=== PATIENT | male | born 1930 | race Caucasian/White ===

== ENCOUNTER 2017-09-18 13:04 | Inpatient (IN) | payer MEDICARE, MEDICAID ==
[~2017-09-18] VITALS: Ht 172.7 cm; Wt 63.1 kg
[~2017-09-18 13:04] MED LIST: APIX5TAB PO; ASCO250T4 PO; ATOR10TA9 PO; BUDE10.2 INH; CEPH250S PO; CLOP75TA52 PO; DIGO125T PO; FERR325T18 PO; GABA-826 PO; LANS15CA5 PO; LEVA0.318 INH; METO25TA35 PO; MIRT30TA4 PO; NICO-487 TD; OXYC5CAP2 PO; POTA10TA11 PO; PRAV40TA2 PO; SENN1TAB7 PO; TAMS-11 PO; TIOT18CA INH
[2017-09-18] MEDS ORDERED: ALBUTEROL/IPRATROPIUM 2.5MG/0.5MG, 3 ML ONE (13:53)
[2017-09-18] MEDS ORDERED: SODIUM CHLORIDE 0.9% 1,000ML IVBOLUS ONE (14:00)
[2017-09-18] MEDS ORDERED: SODIUM CHLORIDE FLUSH 10ML SYR IVF ONE (14:00)
[2017-09-18] MEDS ORDERED: ALBUTEROL/IPRATROPIUM 2.5MG/0.5MG, 3 ML NPPB SCH (14:00)
[2017-09-18 14:21] LABS: BASOPHILS # (AUTO) 0.05 x10^3/uL (0-0.1); BASOPHILS % (AUTO) 1 % (0-1); EOSINOPHILS # (AUTO) 0.05 x10^3/uL (0-0.4); EOSINOPHILS % (AUTO) 1 % (1-7); LYMPHOCYTES # (AUTO) 1.16 x10^3/uL (1-3.4); LYMPHOCYTES % (AUTO) 13 % (22-44); MD NO; MEAN CORPUSCULAR HGB CONC 33.3 g/dL (33.2-36.2); MEAN PLATELET VOLUME 8.7 fL (7.4-10.4); MONOCYTES % (AUTO) 10 % (2-9); NEUTROPHILS # (AUTO) 7.11 x10^3/uL (1.8-6.8); NEUTROPHILS % (AUTO) 77 % (42-75); PLATELET COUNT 126 x10^3/uL (130-400); RED BLOOD COUNT 3.88 x10^6/uL (4.38-5.82); RED CELL DISTRIBUTION WIDTH 15.9 % (9.4-14.8)
[2017-09-18 14:26] LABS: RAPID INFLUENZA A Negative (Negative); RAPID INFLUENZA B Negative (Negative)
[2017-09-18 14:33] LABS: ALANINE AMINOTRANSFERASE 17 U/L (12-78); ALBUMIN 2.9 g/dL (3.4-5.0); ANION GAP 4 mmol/L (5-15); CALCIUM 8.2 mg/dL (8.5-10.1); CHLORIDE 109 mmol/L (98-107); CREATININE 1.44 mg/dL (0.7-1.3)
[2017-09-18 14:37] LABS: ALKALINE PHOSPHATASE 107 U/L (45-117); BILIRUBIN,TOTAL 0.8 mg/dL (0.2-1.0); TOTAL PROTEIN 6.7 g/dL (6.4-8.2); TROPONIN I 0.017 ng/mL (0.000-0.045)
[2017-09-18] MEDS ORDERED: SODIUM CHLORIDE 0.9% 1,000 ML IV ONE (15:25)
[2017-09-18] MEDS ORDERED: SODIUM CHLORIDE FLUSH 10ML SYR IVF PRN (15:30)
[2017-09-18] MEDS ORDERED: ONDANSETRON 2MG/ML, 2ML IVPush PRN (16:30)
[2017-09-18] MEDS ORDERED: ENOXAPARIN 40 MG/0.4 ML SQ SCH (16:30)
[2017-09-18] MEDS ORDERED: POLYETHYLENE GLYCOL 17 GM PACKET PO PRN (16:30)
[2017-09-18] MEDS ORDERED: ONDANSETRON ODT 4 MG PO PRN (16:30)
[2017-09-18] MEDS ORDERED: LABETALOL 5MG/ML, 20ML IVPush PRN (16:30)
[2017-09-18] MEDS ORDERED: ALBUTEROL/IPRATROPIUM 2.5MG/0.5MG, 3 ML NPPB PRN (17:00)
[2017-09-18 17:19] LABS: TROPONIN I 0.022 ng/mL (0.000-0.045)
[2017-09-18 17:57] VITALS: BP 115/50
[2017-09-18] MEDS ORDERED: SODIUM CHLORIDE 0.9% 1,000 ML IV SCH (18:00)
[2017-09-18] MEDS ORDERED: METOPROLOL TARTRATE 25 MG TABLET PO SCH (18:00)
[2017-09-18 18:11] VITALS: BP 115/50
[2017-09-18] MEDS ORDERED: CEFTRIAXONE 1,000 MG in SODIUM CHLORIDE 0.9% 50 ML IV SCH (18:30)
[2017-09-18] MEDS: SODIUM CHLORIDE 0.9% 1,000 ML IV SCH (18:44)
[2017-09-18 19:33] VITALS: BP 100/61
[2017-09-18] MEDS ORDERED: DOXYCYCLINE 100MG TABLET PO SCH (21:00)
[2017-09-18] MEDS: IPRATROPIUM 0.5 MG/2.5 ML INHA NPPB SCH (21:00)
[2017-09-18] MEDS: MIRTAZAPINE 15 MG TABLET PO SCH (21:02)
[2017-09-18] MEDS: APIXABAN 2.5 MG TABLET PO SCH (21:02)
[2017-09-18] MEDS: GABAPENTIN 100 MG CAPSULE PO SCH (21:02)
[2017-09-18] MEDS: ATORVASTATIN 10 MG TABLET PO SCH (21:02)
[2017-09-18 22:36] LABS: TROPONIN I 0.025 ng/mL (0.000-0.045)
[2017-09-19] MEDS: SODIUM CHLORIDE 0.9% 1,000 ML IV SCH ×2 (03:46→14:45)
[2017-09-19 03:51] VITALS: BP 108/62
[2017-09-19] MEDS: METOPROLOL TARTRATE 25 MG TABLET PO SCH ×2 (05:19→17:48)
[2017-09-19 05:37] LABS: ALBUMIN 2.5 g/dL (3.4-5.0); ANION GAP 6 mmol/L (5-15); CALCIUM 7.4 mg/dL (8.5-10.1); CHLORIDE 112 mmol/L (98-107)
[2017-09-19 05:41] LABS: ALANINE AMINOTRANSFERASE 12 U/L (12-78); ALKALINE PHOSPHATASE 90 U/L (45-117); BILIRUBIN,TOTAL 0.8 mg/dL (0.2-1.0); CREATININE 1.31 mg/dL (0.7-1.3); TOTAL PROTEIN 5.9 g/dL (6.4-8.2)
[2017-09-19 05:43] LABS: BASOPHILS # (AUTO) 0.01 x10^3/uL (0-0.1); BASOPHILS % (AUTO) 0 % (0-1); EOSINOPHILS # (AUTO) 0.05 x10^3/uL (0-0.4); EOSINOPHILS % (AUTO) 1 % (1-7); LYMPHOCYTES # (AUTO) 1.76 x10^3/uL (1-3.4); LYMPHOCYTES % (AUTO) 24 % (22-44); MD NO; MEAN CORPUSCULAR HEMOGLOBIN 32.1 pg (27.5-34.5); MEAN CORPUSCULAR HGB CONC 33.5 g/dL (33.2-36.2); MEAN CORPUSCULAR VOLUME 95.8 fL (81-97); MEAN PLATELET VOLUME 8.9 fL (7.4-10.4); MONOCYTES # (AUTO) 0.88 x10^3/uL (0.2-0.8); MONOCYTES % (AUTO) 12 % (2-9); NEUTROPHILS # (AUTO) 4.59 x10^3/uL (1.8-6.8); NEUTROPHILS % (AUTO) 63 % (42-75); PLATELET COUNT 112 x10^3/uL (130-400); RED CELL DISTRIBUTION WIDTH 15.6 % (9.4-14.8)
[2017-09-19] MEDS: IPRATROPIUM 0.5 MG/2.5 ML INHA NPPB SCH ×4 (07:26→21:28)
[2017-09-19 08:20] VITALS: BP 152/70
[2017-09-19] MEDS: PANTOPROZOLE 40MG TABLET PO SCH (08:41)
[2017-09-19] MEDS: GABAPENTIN 100 MG CAPSULE PO SCH ×2 (08:41→20:46)
[2017-09-19] MEDS: APIXABAN 2.5 MG TABLET PO SCH ×2 (08:42→20:46)
[2017-09-19] MEDS: TAMSULOSIN 0.4 MG CAP.ER.24H PO SCH (08:42)
[2017-09-19] MEDS ORDERED: DIGOXIN 0.125 MG TABLET PO SCH (09:00)
[2017-09-19] MEDS: FLUTICASONE/VILANTEROL 200-25MCG/INH INH SCH (10:58)
[2017-09-19 12:09] LABS: CLOSTRIDIUM DIFFICILE ANTIGEN NEGATIVE; CLOSTRIDIUM DIFFICILE TOXIN NEGATIVE (Negative)
[2017-09-19 14:36] VITALS: BP 151/75
[2017-09-19] MEDS: HYDROcodone/APAP 5/325 TABLET PO PRN (14:45)
[2017-09-19 18:15] VITALS: BP 160/71
[2017-09-19] MEDS: SENNA/DOCUSATE TABLET PO SCH (19:31)
[2017-09-19] MEDS: ATORVASTATIN 10 MG TABLET PO SCH (20:46)
[2017-09-19] MEDS: MIRTAZAPINE 15 MG TABLET PO SCH (20:46)
[2017-09-20] VITALS (7 sets, daily range): BP systolic 146–184; BP diastolic 54–73
[2017-09-20] MEDS: SODIUM CHLORIDE 0.9% 1,000 ML IV SCH (00:20)
[2017-09-20 05:38] LABS: BASOPHILS # (AUTO) 0.02 x10^3/uL (0-0.1); BASOPHILS % (AUTO) 0 % (0-1); EOSINOPHILS # (AUTO) 0.16 x10^3/uL (0-0.4); EOSINOPHILS % (AUTO) 3 % (1-7); LYMPHOCYTES # (AUTO) 1.69 x10^3/uL (1-3.4); LYMPHOCYTES % (AUTO) 28 % (22-44); MD NO; MEAN CORPUSCULAR HEMOGLOBIN 32.2 pg (27.5-34.5); MEAN CORPUSCULAR HGB CONC 33.7 g/dL (33.2-36.2); MEAN CORPUSCULAR VOLUME 95.8 fL (81-97); MONOCYTES # (AUTO) 0.73 x10^3/uL (0.2-0.8); MONOCYTES % (AUTO) 12 % (2-9); NEUTROPHILS # (AUTO) 3.39 x10^3/uL (1.8-6.8); NEUTROPHILS % (AUTO) 57 % (42-75); PLATELET COUNT 105 x10^3/uL (130-400); RED BLOOD COUNT 3.19 x10^6/uL (4.38-5.82); RED CELL DISTRIBUTION WIDTH 15.5 % (9.4-14.8)
[2017-09-20 05:49] LABS: ALBUMIN 2.5 g/dL (3.4-5.0); ANION GAP 5 mmol/L (5-15); CALCIUM 7.6 mg/dL (8.5-10.1); CHLORIDE 116 mmol/L (98-107)
[2017-09-20] MEDS: METOPROLOL TARTRATE 25 MG TABLET PO SCH ×2 (06:00→18:08)
[2017-09-20] MEDS: IPRATROPIUM 0.5 MG/2.5 ML INHA NPPB SCH ×4 (06:00→21:00)
[2017-09-20 06:10] LABS: CREATININE 1.15 mg/dL (0.7-1.3)
[2017-09-20] MEDS: PANTOPROZOLE 40MG TABLET PO SCH (07:30)
[2017-09-20] MEDS ORDERED: ALBUTEROL SULFATE 2.5 MG/3 ML NPPB PRN (08:00)
[2017-09-20] MEDS: SENNA/DOCUSATE TABLET PO SCH (09:00)
[2017-09-20] MEDS: GABAPENTIN 100 MG CAPSULE PO SCH ×2 (09:35→20:54)
[2017-09-20] MEDS: APIXABAN 2.5 MG TABLET PO SCH ×2 (09:35→20:54)
[2017-09-20] MEDS: TAMSULOSIN 0.4 MG CAP.ER.24H PO SCH (09:35)
[2017-09-20] MEDS: SODIUM CHLORIDE 0.45% 1,000 ML IV SCH ×2 (09:36→17:52)
[2017-09-20] MEDS: FLUTICASONE/VILANTEROL 200-25MCG/INH INH SCH (11:54)
[2017-09-20] MEDS: AMLODIPINE 5 MG TABLET PO SCH (18:24)
[2017-09-20] MEDS ORDERED: hydrALAzine 20 MG/ML, 1ML IV PRN (18:30)
[2017-09-20] MEDS: ATORVASTATIN 10 MG TABLET PO SCH (20:54)
[2017-09-20] MEDS: MIRTAZAPINE 15 MG TABLET PO SCH (20:54)
[2017-09-20] MEDS ORDERED: DIPHENHYDRAMINE 50 MG CAPSULE ONE (23:58)
[2017-09-21] MEDS ORDERED: DIPHENHYDRAMINE 50 MG CAPSULE PO PRN
[2017-09-21 01:29] VITALS: BP 137/56
[2017-09-21] MEDS: IPRATROPIUM 0.5 MG/2.5 ML INHA NPPB SCH ×4 (03:30→20:34)
[2017-09-21] MEDS: SODIUM CHLORIDE 0.45% 1,000 ML IV SCH ×2 (04:16→14:23)
[2017-09-21 05:31] LABS: BASOPHILS # (AUTO) 0.02 x10^3/uL (0-0.1); BASOPHILS % (AUTO) 0 % (0-1); EOSINOPHILS # (AUTO) 0.21 x10^3/uL (0-0.4); EOSINOPHILS % (AUTO) 3 % (1-7); LYMPHOCYTES # (AUTO) 2.04 x10^3/uL (1-3.4); LYMPHOCYTES % (AUTO) 29 % (22-44); MD NO; MEAN CORPUSCULAR HEMOGLOBIN 31.6 pg (27.5-34.5); MEAN CORPUSCULAR HGB CONC 32.7 g/dL (33.2-36.2); MEAN CORPUSCULAR VOLUME 96.7 fL (81-97); MEAN PLATELET VOLUME 8.8 fL (7.4-10.4); MONOCYTES # (AUTO) 0.66 x10^3/uL (0.2-0.8); MONOCYTES % (AUTO) 10 % (2-9); NEUTROPHILS # (AUTO) 4.02 x10^3/uL (1.8-6.8); NEUTROPHILS % (AUTO) 58 % (42-75); PLATELET COUNT 130 x10^3/uL (130-400); RED BLOOD COUNT 3.47 x10^6/uL (4.38-5.82); RED CELL DISTRIBUTION WIDTH 15.1 % (9.4-14.8)
[2017-09-21 05:34] LABS: ALBUMIN 2.8 g/dL (3.4-5.0); ANION GAP 4 mmol/L (5-15); CALCIUM 7.8 mg/dL (8.5-10.1); CHLORIDE 114 mmol/L (98-107); CREATININE 1.15 mg/dL (0.7-1.3)
[2017-09-21] MEDS: METOPROLOL TARTRATE 25 MG TABLET PO SCH ×2 (06:00→17:03)
[2017-09-21 08:08] VITALS: BP 134/52
[2017-09-21] MEDS: FLUTICASONE/VILANTEROL 200-25MCG/INH INH SCH (08:33)
[2017-09-21] MEDS: GABAPENTIN 100 MG CAPSULE PO SCH ×2 (08:34→21:05)
[2017-09-21] MEDS: APIXABAN 2.5 MG TABLET PO SCH ×2 (08:34→21:05)
[2017-09-21] MEDS: AMLODIPINE 5 MG TABLET PO SCH (08:34)
[2017-09-21] MEDS: TAMSULOSIN 0.4 MG CAP.ER.24H PO SCH (08:34)
[2017-09-21] MEDS: SENNA/DOCUSATE TABLET PO SCH (08:34)
[2017-09-21] MEDS: PANTOPROZOLE 40MG TABLET PO SCH (08:34)
[2017-09-21 14:41] VITALS: BP 149/69
[2017-09-21 17:01] VITALS: BP 155/71
[2017-09-21 19:50] VITALS: BP 158/72
[2017-09-21] MEDS: ATORVASTATIN 10 MG TABLET PO SCH (21:05)
[2017-09-21] MEDS: MIRTAZAPINE 15 MG TABLET PO SCH (21:05)
[2017-09-22 00:31] VITALS: BP 143/73
[2017-09-22 05:39] LABS: BASOPHILS # (AUTO) 0.02 x10^3/uL (0-0.1); BASOPHILS % (AUTO) 0 % (0-1); EOSINOPHILS # (AUTO) 0.19 x10^3/uL (0-0.4); EOSINOPHILS % (AUTO) 4 % (1-7); LYMPHOCYTES # (AUTO) 1.68 x10^3/uL (1-3.4); LYMPHOCYTES % (AUTO) 31 % (22-44); MD NO; MEAN CORPUSCULAR HEMOGLOBIN 31.6 pg (27.5-34.5); MEAN CORPUSCULAR HGB CONC 33.6 g/dL (33.2-36.2); MEAN CORPUSCULAR VOLUME 94.2 fL (81-97); MEAN PLATELET VOLUME 8.4 fL (7.4-10.4); MONOCYTES # (AUTO) 0.56 x10^3/uL (0.2-0.8); MONOCYTES % (AUTO) 10 % (2-9); NEUTROPHILS # (AUTO) 2.94 x10^3/uL (1.8-6.8); NEUTROPHILS % (AUTO) 55 % (42-75); PLATELET COUNT 121 x10^3/uL (130-400); RED BLOOD COUNT 3.34 x10^6/uL (4.38-5.82); RED CELL DISTRIBUTION WIDTH 15.5 % (9.4-14.8)
[2017-09-22 05:47] LABS: ALBUMIN 2.6 g/dL (3.4-5.0); ANION GAP 3 mmol/L (5-15); CALCIUM 7.5 mg/dL (8.5-10.1); CHLORIDE 114 mmol/L (98-107); CREATININE 1.12 mg/dL (0.7-1.3)
[2017-09-22] MEDS: METOPROLOL TARTRATE 25 MG TABLET PO SCH ×2 (06:00→17:57)
[2017-09-22 06:45] VITALS: BP 165/71
[2017-09-22] MEDS: PANTOPROZOLE 40MG TABLET PO SCH (07:56)
[2017-09-22] MEDS ORDERED: MAGNESIUM SULFATE PMX 2GM/50ML 50 ML IV ONE (08:00)
[2017-09-22] MEDS ORDERED: POTASSIUM CHLORIDE 20 MEQ TAB.ER.PRT PO ONE (08:00)
[2017-09-22] MEDS: FLUTICASONE/VILANTEROL 200-25MCG/INH INH SCH (09:03)
[2017-09-22] MEDS: AMLODIPINE 5 MG TABLET PO SCH (09:03)
[2017-09-22] MEDS: GABAPENTIN 100 MG CAPSULE PO SCH ×2 (09:03→20:28)
[2017-09-22] MEDS: TAMSULOSIN 0.4 MG CAP.ER.24H PO SCH (09:03)
[2017-09-22] MEDS: APIXABAN 2.5 MG TABLET PO SCH ×2 (09:03→20:27)
[2017-09-22] MEDS: SENNA/DOCUSATE TABLET PO SCH (09:04)
[2017-09-22] MEDS: IPRATROPIUM 0.5 MG/2.5 ML INHA NPPB SCH ×3 (09:17→19:50)
[2017-09-22 12:15] VITALS: BP 154/76
[2017-09-22] MEDS ORDERED: LOPERAMIDE 2 MG CAPSULE PO ONE (17:30)
[2017-09-22 18:00] VITALS: BP 153/75
[2017-09-22 18:32] VITALS: BP 158/72
[2017-09-22] MEDS ORDERED: ALBUTEROL SULFATE 2.5 MG/3 ML ONE (19:46)
[2017-09-22] MEDS: MIRTAZAPINE 15 MG TABLET PO SCH (20:27)
[2017-09-22] MEDS: ATORVASTATIN 10 MG TABLET PO SCH (20:27)
[2017-09-22] MEDS: HYDROcodone/APAP 5/325 TABLET PO PRN (20:28)
[2017-09-23 00:31] VITALS: BP 137/53
[2017-09-23 05:12] LABS: BASOPHILS # (AUTO) 0.03 x10^3/uL (0-0.1); BASOPHILS % (AUTO) 1 % (0-1); EOSINOPHILS # (AUTO) 0.25 x10^3/uL (0-0.4); EOSINOPHILS % (AUTO) 5 % (1-7); LYMPHOCYTES # (AUTO) 1.97 x10^3/uL (1-3.4); LYMPHOCYTES % (AUTO) 37 % (22-44); MD NO; MEAN CORPUSCULAR HEMOGLOBIN 32.3 pg (27.5-34.5); MEAN CORPUSCULAR VOLUME 94.9 fL (81-97); MEAN PLATELET VOLUME 8.7 fL (7.4-10.4); MONOCYTES # (AUTO) 0.54 x10^3/uL (0.2-0.8); MONOCYTES % (AUTO) 10 % (2-9); NEUTROPHILS # (AUTO) 2.53 x10^3/uL (1.8-6.8); NEUTROPHILS % (AUTO) 48 % (42-75); PLATELET COUNT 115 x10^3/uL (130-400); RED BLOOD COUNT 3.16 x10^6/uL (4.38-5.82); RED CELL DISTRIBUTION WIDTH 15.6 % (9.4-14.8)
[2017-09-23 05:22] LABS: ALBUMIN 2.7 g/dL (3.4-5.0); ANION GAP 4 mmol/L (5-15); CALCIUM 7.6 mg/dL (8.5-10.1); CHLORIDE 114 mmol/L (98-107)
[2017-09-23] MEDS: METOPROLOL TARTRATE 25 MG TABLET PO SCH ×2 (06:00→06:48)
[2017-09-23 07:00] VITALS: BP 133/68
[2017-09-23] MEDS ORDERED: POTASSIUM CHLORIDE 20 MEQ TAB.ER.PRT PO ONE (07:30)
[2017-09-23] MEDS ORDERED: SODIUM PHOSPHATE 30 MMOL in SODIUM CHLORIDE 0.9% 500 ML IV ONE (07:30)
[2017-09-23] MEDS ORDERED: SODIUM PHOSPHATE 4 MEQ/ML IV SCH (07:30)
[2017-09-23] MEDS: SENNA/DOCUSATE TABLET PO SCH (08:03)
[2017-09-23] MEDS: PANTOPROZOLE 40MG TABLET PO SCH (08:10)
[2017-09-23] MEDS: TAMSULOSIN 0.4 MG CAP.ER.24H PO SCH (08:11)
[2017-09-23] MEDS: APIXABAN 2.5 MG TABLET PO SCH (08:11)
[2017-09-23] MEDS: GABAPENTIN 100 MG CAPSULE PO SCH (08:11)
[2017-09-23] MEDS: FLUTICASONE/VILANTEROL 200-25MCG/INH INH SCH (08:11)
[2017-09-23] MEDS: AMLODIPINE 5 MG TABLET PO SCH (08:11)
[2017-09-23] MEDS ORDERED: METO25TA35 PO (08:14)
[2017-09-23] MEDS ORDERED: AMLO5TAB2 PO (08:17)
[2017-09-23] MEDS ORDERED: NEUTRA PHOS K 250 MG TABLET PO SCH (09:00)
== END 2017-09-23 10:35 | disposition home or self-care (01) | DRG 682 ==
LOC: ED 15:24 → EDIP 15:25 → ED 15:38 → 5SO 17:45 → 4EST 09-20 06:40 → DCLOUNGE 09-23 10:26
PROVIDERS: ADMIT Hospitalist; ATTEND Hospitalist
DX: I12.9 Hypertensive chronic kidney disease with stage 1 through stage 4 chronic kidney disease, or unspecified chronic kidney disease (principal); E43 Unspecified severe protein-calorie malnutrition; J96.10 Chronic respiratory failure, unspecified whether with hypoxia or hypercapnia; D68.69 Other thrombophilia; D69.6 Thrombocytopenia, unspecified; I48.0 Paroxysmal atrial fibrillation; J44.1 Chronic obstructive pulmonary disease with (acute) exacerbation; N18.3 Chronic kidney disease, stage 3 (moderate); D64.9 Anemia, unspecified; E78.5 Hyperlipidemia, unspecified; F17.210 Nicotine dependence, cigarettes, uncomplicated; G89.29 Other chronic pain; M54.9 Dorsalgia, unspecified; I25.10 Atherosclerotic heart disease of native coronary artery without angina pectoris; J06.9 Acute upper respiratory infection, unspecified; K21.9 Gastro-esophageal reflux disease without esophagitis; N40.0 Benign prostatic hyperplasia without lower urinary tract symptoms; T46.0X5A Adverse effect of cardiac-stimulant glycosides and drugs of similar action, initial encounter; Z66 Do not resuscitate; Z79.01 Long term (current) use of anticoagulants; Z83.3 Family history of diabetes mellitus; Z86.73 Personal history of transient ischemic attack (TIA), and cerebral infarction without residual deficits; Z87.01 Personal history of pneumonia (recurrent); Z99.81 Dependence on supplemental oxygen; Z88.8 Allergy status to other drugs, medicaments and biological substances
CPT/HCPCS: 36415; 71045; 80048; 80053; 80162; 82040; 83735; 83880; 84100; 84484; 85025; 87324; 87400; 93005; 93306; 94640; 96360; J0696; J7620; J7644; J0360; J3475; J7030

== ENCOUNTER 2019-03-08 22:14 | Emergency (ER) | payer MEDICAID, MEDICARE, OTHER ==
[~2019-03-08] VITALS: Ht 172.7 cm; Wt 60.0 kg
[~2019-03-08 22:14] MED LIST changes: +AMLO-150 PO; +LEVA0.3129 INH; -LEVA0.318 INH; +SENN-177 PO; -SENN1TAB7 PO
[2019-03-08] MEDS ORDERED: ATOR-2 PO (22:34)
[2019-03-08] MEDS ORDERED: OXYMETAZOLINE NASAL SPRAY 0.05%,30ML ONE (22:35)
--- NOTE | 2019-03-08 22:52 | NUR ---
PT HERE FOR NOSE BLEED. NOSE CAUDERIZED AT [place] THIS MORNING. PT MEDICATED WITH AFRIN. VSS. CALL LIGHT IN REACH
[2019-03-08] MEDS ORDERED: OXYMETAZOLINE NASAL SPRAY 0.05%, 15ML NAS ONE (23:00)
--- NOTE | 2019-03-08 23:32 | NUR ---
PT TO BE DISCHARGED. CALLED TO GIVE REPORT TO FACILITY AND THERE WAS NO ANSWER. LEFT MESSAGE FOR FACILITY TO CALL AND THAT PATIENT IS BEING DISCHARGED
--- NOTE | 2019-03-08 23:44 | NUR ---
CALLED [facility] SPOKE W/ MARIANNA GAVE INFO HE STATES THE PT HAS NO TRANSPORTAION SERVICES CALLED MICHAELLE TATE [id number]
--- NOTE | 2019-03-08 23:59 | NUR ---
REPORT GIVEN TO FACILITY. VSS. PT TO BE TRANSFERRED BY [facility]
[2019-03-09 00:10] VITALS: BP 119/72
== END 2019-03-09 00:12 | disposition home or self-care (01) ==
LOC: ED 23:32
DX: R04.0 Epistaxis (principal); I10 Essential (primary) hypertension; I48.91 Unspecified atrial fibrillation; E78.5 Hyperlipidemia, unspecified; J44.9 Chronic obstructive pulmonary disease, unspecified; Z90.49 Acquired absence of other specified parts of digestive tract
CPT/HCPCS: 99283

== ENCOUNTER 2019-08-16 19:08 | Emergency (ER) | payer OTHER ==
[~2019-08-16] VITALS: Ht 170.2 cm; Wt 60.0 kg
[~2019-08-16 19:08] MED LIST changes: +ATOR-2 PO
[2019-08-16 20:21] VITALS: BP 97/43
[2019-08-16] MEDS: ALBUTEROL/IPRATROPIUM 2.5MG/0.5MG, 3 ML NPPB ONE (20:30)
[2019-08-16] MEDS ORDERED: OXYMETAZOLINE NASAL SPRAY 0.05%,30ML NAS ONE (20:30)
[2019-08-16] MEDS ORDERED: IPRATROPIUM 0.5 MG/2.5 ML INHA ONE (20:32)
--- NOTE | 2019-08-16 20:33 | NUR ---
pt stated "albuterol makes him jittery and thats why he said i is an allergie".
[2019-08-16] MEDS ORDERED: OXYMETAZOLINE NASAL SPRAY 0.05%,30ML ONE (20:36)
== END 2019-08-16 21:51 | disposition home or self-care (01) ==
LOC: ED 21:12
DX: R04.0 Epistaxis (principal); R06.00 Dyspnea, unspecified; J44.9 Chronic obstructive pulmonary disease, unspecified; I48.91 Unspecified atrial fibrillation; I25.10 Atherosclerotic heart disease of native coronary artery without angina pectoris; K21.9 Gastro-esophageal reflux disease without esophagitis; Z86.73 Personal history of transient ischemic attack (TIA), and cerebral infarction without residual deficits; E78.5 Hyperlipidemia, unspecified; I10 Essential (primary) hypertension; Z90.49 Acquired absence of other specified parts of digestive tract; Z85.05 Personal history of malignant neoplasm of liver
CPT/HCPCS: 94640; 99283; J7620